=== PATIENT | male | born 1950 | race Caucasian/White ===

== ENCOUNTER 2019-12-07 12:11 | Outpatient (RCR) | payer MEDICARE, OTHER, SELFPAY | END 2020-01-03 23:59 | disposition home or self-care (01) | LOC: SPT 12:11 | PROVIDERS: PCP Internal Medicine; Visit Provider Internal Medicine | DX: M54.10 Radiculopathy, site unspecified (principal) | CPT/HCPCS: 97110; 97162 ==

== ENCOUNTER 2019-12-16 09:11 | Day surgery (SDC) | payer MEDICARE, OTHER, SELFPAY ==
[2019-12-15 13:10] VITALS: BMI 28.2
[2019-12-16] MEDS: sodium chloride 0.9% 1,000 ML 30 ML IV (09:42)
--- NOTE | 2019-12-16 09:55 | P.ANESASSM_ITS ---
Pre-Anesthetic Assessment Pre-Anesthetic Assessment: Height/Weight: Height 1.93 m Weight 105.233 kg Preop Diagnosis: s Proposed Procedure: Operation Date: 12/16/19 10:00 Proposed Procedures p Colonoscopy G0104 Z12.11(Not Applicable) - Manny Dunn MD Familial anesthetic complications: NOne, last took eliquis thursday Was Beta Bl ocker taken within 24 hours: Yes Last intake: Intake Last Liquid Date 12/15/19 Last Liquid Time 23:00 Last Solid Date 12/14/19 Last Solid Time 18:00 Social: Social History: No alcohol and No tobacco Exam: Pre-Anes Outpt Exam: alert, oriented x 3, clear to auscultation bilaterally and regular rate & rhythm Airway: Cervical ROM: WNL MP: 3 Dentition: Full Pulmonary: Pulmonary: None reported CV/HEM: CV/HEM: Afib and HTN : : None reported Hepatic: Hepatic: None reported GI: GI: None reported Metabolic: Metabolic: None reported Musc/skel: Musc/skel: None reported Neuropsych: Neuropsych: None reported Anesthetic Plan: ASA status: 2 Anesthesia: MAC Risk of > 500 ml blood loss (7ml/kg in children): No Meds/Allergies Current Medications: Current Medications Generic Name Dose Route Start Last Admin Trade Name Freq PRN Reason Stop Dose Admin Sodium Chloride 1,000 mls @ 30 ml s/hr 12/16/19 09:30 12/16/19 09:42 Sodium Chloride 0.9% IV 12/17/19 09:29 30 mls/hr .Q24H FELICIA Administration PFSH Anesthesia PFSH: Medical History (Updated 12/01/19 @ 10:01 by Manny Dunn MD) A-fib Hypertension Family History (Updated 12/01/19 @ 09:05 by Cathie Lopez LPN) Other Dementia Social History (Updated 12/01/19 @ 08:44 by Cathie Lopez LPN) Alcohol intake: current Alcohol intake frequency: few times a month Current occupational status: retired Data Anesthesia Cardiac Studies: No Data to Display
--- NOTE | 2019-12-16 10:22 | P.HP_ITS ---
Same Day Surgery H&P Indication for Procedure/HPI DATE OF PROCEDURE: December 16, 2019 CHIEF COMPLAINT/INDICATIONFOR SURGICAL PROCEDURE: Routine screening average risk PREOP DIAGNOSIS: s PLANNED PROCEDRUE: Operation Date: 12/16/19 10:00 Proposed Procedures p Colonoscopy G0104 Z12.11(Not Applicable) - Manny Dunn MD Medications/Allergies* Home Medications Medication Instructions Recorded Confirmed Type amlodipine 5 mg tablet 5 mg PO DAILY 12/01/19 12/16/19 History apixaban 5 mg tablet 5 mg PO BID 12/01/19 12/15/19 History lisinopril 20 mg tablet 20 mg PO DAILY 12/01/19 12/16/19 History loratadine 10 mg tablet 10 mg PO DAILY 12/01/19 12/16/19 History melatonin 5 mg tablet 5 mg PO DAILY 12/01/19 12/16/19 History metoprolol succinate 50 mg capsule 50 mg PO DAILY 12/01/19 12/16/19 History sprinkle, ext. release 24 hr multivitamin 1 tab PO QAM 12/01/19 12/16/19 History vitamins A,C,Z-sdqd-bdnvvt 14,320 2 cap PO DAILY cap 12/01/19 12/16/19 History unit-226 mg-200 unit capsule Allergies/Adverse Reactions Allergy/AdvReac Type Severity Reaction Status Date / Time No Known Allergies Allergy Verified 12/16/19 09:31 Current Medications: Generic Name Dose Route Start Last Admin Trade Name Freq PRN Reason Stop Dose Admin Sodium Chloride 1,000 mls @ 30 mls/hr 12/16/19 09:30 12/16/19 09:42 Sodium Chloride 0.9% IV 12/17/19 09:29 30 mls/hr .Q24H FELICIA Administration Pertinent History/Comorbid Conditions* Medical History (Updated 12/01/19 @ 10:01 by Manny Dunn MD) A-fib Hypertension Family History (Updated 12/01/19 @ 09:05 by Cathie Lopez LPN) Dementia Social History Alcohol intake: current Alcohol intake frequency: few times a month Current occupational status: retired Pertinent Exam Findings alert, oriented x 3, clear to auscultation bilaterally, regular rate & rhythm, operative site marked and procedure specific exam findings Recommendations Surgery/Procedure today Coding Level of Care Code Acute 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
[2019-12-16 10:35] VITALS: BP 88/67; PULSE 77; RESP 16; TEMP 36.4; O2SAT 97
[2019-12-16 10:42] VITALS: BP 107/75; PULSE 73; RESP 18; O2SAT 98
[2019-12-16 11:03] VITALS: BP 111/75; PULSE 88; RESP 18; O2SAT 98
== END 2019-12-16 11:00 | disposition home or self-care (01) ==
PROVIDERS: PCP Internal Medicine; Visit Provider Internal Medicine
PROC: 0DJD8ZZ Inspection of Lower Intestinal Tract, Via Natural or Artificial Opening Endoscopic (ICD-10-PCS; CPT 45378; principal; 2019-12-16 10:00)
DX: Z12.11 Encounter for screening for malignant neoplasm of colon (principal); I10 Essential (primary) hypertension; I48.91 Unspecified atrial fibrillation
CPT/HCPCS: 12345; G0121; J2704; J7030

== ENCOUNTER → 2019-12-29 14:10 | Outpatient (BNVA) | payer MEDICARE, OTHER, SELFPAY | PROVIDERS: PCP Internal Medicine; Visit Provider Internal Medicine Cardiovascular Disease | DX: I10 Essential (primary) hypertension (principal); I48.91 Unspecified atrial fibrillation | CPT/HCPCS: 80048; 80061; 85025 ==

== ENCOUNTER → 2021-06-18 10:56 | Outpatient (BNVA) | payer SELFPAY | PROVIDERS: PCP Internal Medicine; Referring Provider Internal Medicine; Visit Provider Dermatology | DX: Z01.89 Encounter for other specified special examinations (principal) ==

== ENCOUNTER → 2021-09-17 00:01 | Outpatient (BNVA) | payer SELFPAY | PROVIDERS: PCP Internal Medicine; Visit Provider Dermatology | DX: Z01.89 Encounter for other specified special examinations (principal) ==

== ENCOUNTER 2021-12-17 09:57 | Outpatient (CLI) | payer SELFPAY ==
[2021-12-17 10:28] LABS: HF Add Manual Diff No
[2021-12-17 10:35] LABS: Basophils # 0.1 10^3/uL (0.0-0.1); Basophils % 0.8 %; Eosinophils # 0.1 10^3/uL (0.0-0.8); Eosinophils % 2.2 %; Hemoglobin 15.1 g/dL (11.7-16.6); Lymphocytes # 1.7 10^3/uL (0.8-4.8); Lymphocytes % 28.1 %; Mean Corpuscular HGB Conc 34.3 g/dL (30.0-36.0); Mean Corpuscular Hemoglobin 29.9 pg (28.0-34.0); Mean Corpuscular Volume 87.1 fl (80-94); Mean Platelet Volume 11.3 fL (7.4-10.4); Monocytes # 0.5 10^3/uL (0.2-0.9); Monocytes % 8.6 %; Neutrophils # 3.57 10^3/uL (1.8-7.7); Neutrophils % 60.1 %; Nucleated Red Blood Cells % 0 %; Platelet Count 192 10^3/cmm (130-400); Red Blood Count 5.05 10^6/uL (4.1-5.3); Red Cell Distribution Width 12.7 % (12.1-15.1); White Blood Count 5.9 10^3/uL (4.0-10.0)
[2021-12-17 11:18] LABS: Alanine Aminotransferase 41 U/L (0-41); Albumin Level 4.3 g/dL (3.5-5.2); Alkaline Phosphatase 96 IU/L (40-130); Anion Gap 12.2 (5-19); Aspartate Amino Transferase 26 U/L (0-40); Blood Urea Nitrogen 13 mg/dL (8-23); Calcium 8.9 mg/dL (8.5-10.5); Carbon Dioxide 27 mmol/L (22-29); Chloride 103 mmol/L (98-107); Chol HDL Ratio 3.39 mg/dL (1.0-5.00); Cholesterol 149 mg/dL (0-200); Globulin 2.5 g/dL (1.3-4.6); Glomerular Filtration Rate 83.4 mL/min (90-130); Glucose 111 mg/dL (65-115); HDL Cholesterol 44 mg/dL (60-100); LDL Cholesterol Calculated 80 mg/dL (50-129); LDL HDL Ratio 1.82 RATIO (0.00-3.22); Osmolality Calculated 287 mOsm/kg (285-295); Potassium 4.2 mmol/L (3.5-5.1); Prostate Specific Antigen Scr 2.24 ng/mL (0-4); Sodium 138 mmol/L (136-145); Total Bilirubin 0.5 mg/dL (0.15-1.2); Total Protein 6.8 g/dL (6.6-8.7); Triglycerides 127 mg/dL (0-150)
[2021-12-17 11:43] LABS: Estmated Average Glucose 123; Hemoglobin A1C 5.9 % (4.0-6.0)
== END 2021-12-17 09:58 | disposition home or self-care (01) ==
LOC: LAB 10:01
PROVIDERS: PCP Internal Medicine; Visit Provider Dermatology
DX: Z00.00 Encounter for general adult medical examination without abnormal findings (principal)
CPT/HCPCS: 36415

== ENCOUNTER → 2021-12-24 15:13 | Outpatient (BNVA) | payer MEDICARE, OTHER, SELFPAY | PROVIDERS: PCP Internal Medicine; Visit Provider Internal Medicine Cardiovascular Disease | DX: I48.19 Other persistent atrial fibrillation (principal); I10 Essential (primary) hypertension; E78.5 Hyperlipidemia, unspecified; M54.10 Radiculopathy, site unspecified | CPT/HCPCS: 99214 ==

== ENCOUNTER 2022-03-11 06:32 | Outpatient (CLI) | payer MEDICARE, OTHER, SELFPAY ==
--- NOTE | 2022-03-11 07:00 | USCV_ITS ---
Mark Huerta Age: 71 Gender: M : 1950 Exam Date: 03/11/2022 06:51 Ordering Phys: Esther Gandhi MD ([email or web address]) Technologist: [place] [facility] [place]: Chest pain BP: 120 / 80 HR: 83 Rhythm: Sinus Technical Quality: Adequate MEASUREMENTS (Male / Female) Normal Values 2D ECHO LV Diastolic Diameter PLAX 3.5 cm 4.2 - 5.9 / 3.9 - 5.3 cm LV Systolic Diameter PLAX 2.2 cm IVS Diastolic Thickness 1.1 cm 0.6 - 1.0 / 0.6 - 0.9 cm IVS Systolic Thickness 1.5 cm LVPW Diastolic Thickness 1.1 cm 0.6 - 1.0 / 0.6 - 0.9 cm LVPW Systolic Thickness 1.4 cm LV Ejection Fraction 2D Teich 67.1 % LA Diameter 3.7 cm LA Width 4.9 cm IVC Diameter 1.7 cm M-MODE LV Diastolic Diameter MM 4.8 cm 4.2 - 5.9 / 3.9 - 5.3 cm LV Systolic Diameter MM 3.5 cm LV Ejection Fraction MM Teich 54.9 % IVS Diastolic Thickness MM 1.0 cm 0.6 - 1.0 / 0.6 - 0.9 cm IVS Systolic Thickness MM 1.5 cm LVPW Diastolic Thickness MM 1.1 cm 0.6 - 1.0 / 0.6 - 0.9 cm LVPW Systolic Thickness MM 1.8 cm RV Diastolic Diameter MM 2.1 cm Aortic Annulus Diameter 3.2 cm LA Ao Ratio MM 1.4 MV E Point Septal Separation 0.8 cm DOPPLER AV Peak Velocity 98.0 cm/s LVOT Peak Velocity 68.0 cm/s MV Area PHT 5.0 cm squared Mitral E to A Ratio 2.9 MV E' Velocity 49.5 cm/s Mitral E to MV E' Ratio 12.2 Mitral E to LV E' Lateral Ratio 18.1 Mitral E to LV E' Septal Ratio 9.2 TR Peak Velocity 273.0 cm/s TR Peak Gradient 29.8 mmHg TV Peak E Velocity 102.0 cm/s Right Atrial Pressure 3.0 mmHg Pulmonary Artery Systolic Pressu 32.8 mmHg PV Peak Velocity 89.0 cm/s RV Acceleration Time 0.1 s FINDINGS Left Ventricle Normal left ventricular size, systolic function and wall thickness, with no regional wall motion abnormalities. Left ventricular ejection fraction is estimated at 65 %. Abnormal diastolic function. Right Ventricle Normal right ventricular size and systolic function. Right ventricular systolic pressure 33 mmHg. Right Atrium Normal right atrial size. Left Atrium Mildly increased left atrial size. Mitral Valve Structurally normal mitral valve. No mitral valve stenosis. Trace mitral valve regurgitation. Aortic Valve Structurally normal trileaflet aortic valve. No aortic valve stenosis. No aortic valve regurgitation. Tricuspid Valve Structurally normal tricuspid valve. Mild tricuspid valve regurgitation. Pulmonic Valve Structurally normal pulmonic valve. No pulmonary valve stenosis. Trace pulmonary valve regurgitation. Pericardium No pericardial effusion. Aorta Normal size aortic root and proximal ascending aorta. IVC Normal inferior vena cava. CONCLUSIONS 1. Normal left ventricular size, systolic function and wall thickness, with no regional wall motion abnormalities. Left ventricular ejection fraction is estimated at 65 %. Abnormal diastolic function. 2. Normal right ventricular size and systolic function. 3. Pulmonary artery pressure estimated at 33 mmHg. 4. No significant change when compared to prior study dated 06/12/2017. Esther Gandhi MD (Electronically Signed) Final Date: 17 March 2022 12:28 S
== END 2022-03-11 06:33 | disposition home or self-care (01) ==
LOC: RAD 06:33
PROVIDERS: PCP Internal Medicine; Visit Provider Internal Medicine Cardiovascular Disease
DX: I48.91 Unspecified atrial fibrillation (principal); R07.9 Chest pain, unspecified; I08.1 Rheumatic disorders of both mitral and tricuspid valves
CPT/HCPCS: 93306

== ENCOUNTER 2022-06-17 10:24 | Outpatient (CLI) | payer SELFPAY ==
[2022-06-17 10:57] LABS: HF Add Manual Diff No
[2022-06-17 11:01] LABS: Basophils # 0.1 10^3/uL (0.0-0.1); Basophils % 0.7 %; Eosinophils # 0.1 10^3/uL (0.0-0.8); Eosinophils % 1.9 %; Hematocrit 47.5 % (42.0-52.0); Hemoglobin 15.9 g/dL (11.7-16.6); Lymphocytes # 1.5 10^3/uL (0.8-4.8); Lymphocytes % 21.2 %; Mean Corpuscular HGB Conc 33.5 g/dL (30.0-36.0); Mean Corpuscular Hemoglobin 30.5 pg (28.0-34.0); Mean Corpuscular Volume 91.2 fl (80-94); Mean Platelet Volume 11.1 fL (7.4-10.4); Monocytes # 0.6 10^3/uL (0.2-0.9); Monocytes % 8.8 %; Neutrophils # 4.67 10^3/uL (1.8-7.7); Neutrophils % 67.3 %; Nucleated Red Blood Cells % 0 %; Platelet Count 178 10^3/cmm (130-400); Red Blood Count 5.21 10^6/uL (4.1-5.3); Red Cell Distribution Width 12.7 % (12.1-15.1); White Blood Count 6.9 10^3/uL (4.0-10.0)
[2022-06-17 11:45] LABS: 25 Hydroxy Vitamin D 44 ng/mL (30-100); Alanine Aminotransferase 48 U/L (0-41); Albumin Level 4.2 g/dL (3.5-5.2); Alkaline Phosphatase 109 U/L (40-130); Anion Gap 12.1 (5-19); Aspartate Amino Transferase 31 U/L (0-40); Blood Urea Nitrogen 13 mg/dL (8-23); Calcium 9.3 mg/dL (8.5-10.5); Carbon Dioxide 29 mmol/L (22-29); Chloride 103 mmol/L (98-107); Chol HDL Ratio 3.41 mg/dL (1.0-5.00); Cholesterol 157 mg/dL (0-200); Globulin 2.9 g/dL (1.3-4.6); Glomerular Filtration Rate 95.6 mL/min (90-130); Glucose 119 mg/dL (65-115); HDL Cholesterol 46 mg/dL (60-100); LDL Cholesterol Calculated 80 mg/dL (50-129); LDL HDL Ratio 1.74 RATIO (0.00-3.22); Osmolality Calculated 291 mOsm/kg (285-295); Potassium 4.1 mmol/L (3.5-5.1); Prostate Specific Antigen Scr 2.72 ng/mL (0-4); Sodium 140 mmol/L (136-145); Total Bilirubin 0.8 mg/dL (0.15-1.2); Total Protein 7.1 g/dL (6.6-8.7); Triglycerides 155 mg/dL (0-150)
[2022-06-17 12:14] LABS: Estmated Average Glucose 120; Hemoglobin A1C 5.8 % (4.0-6.0)
== END 2022-06-17 10:25 | disposition home or self-care (01) ==
PROVIDERS: PCP Internal Medicine; Visit Provider Dermatology
DX: Z01.89 Encounter for other specified special examinations (principal); I48.19 Other persistent atrial fibrillation; I10 Essential (primary) hypertension; E78.5 Hyperlipidemia, unspecified; M54.10 Radiculopathy, site unspecified
CPT/HCPCS: 99214

== ENCOUNTER → 2022-09-09 09:56 | Outpatient (BNVA) | payer MEDICARE, OTHER, SELFPAY | PROVIDERS: PCP Internal Medicine; Visit Provider Family Medicine | DX: N52.1 Erectile dysfunction due to diseases classified elsewhere (principal); I48.19 Other persistent atrial fibrillation; L82.1 Other seborrheic keratosis; L57.0 Actinic keratosis; Z12.5 Encounter for screening for malignant neoplasm of prostate; I10 Essential (primary) hypertension; M54.10 Radiculopathy, site unspecified; M48.062 Spinal stenosis, lumbar region with neurogenic claudication | CPT/HCPCS: 80053; G0103 ==

== ENCOUNTER 2022-09-15 13:26 | Outpatient (CLI) | payer MEDICARE, OTHER, SELFPAY ==
--- NOTE | 2022-09-15 14:22 | XR_ITS ---
WS: [id number] XR lumbar spine 2-3V* [id number] REASON FOR EXAM: Low back pain, Radiculopathy. FINDINGS: Minimal rotatory scoliosis convex right. Normal lordosis. No significant focal vertebral body abnormality. Partial sacralization of L5. Intervertebral disc spaces are relatively well-preserved. Mild narrowing of the L1-L2 disc space. No spondylolysis and no significant spondylolisthesis. Moderate degenerative change in the facet joints L4-S1. XR/XR lumbar spine 2-3V* [id number] IMPRESSION: Minimal change of degenerative spondylosis for age.
== END 2022-09-15 13:27 | disposition home or self-care (01) ==
PROVIDERS: PCP Internal Medicine; Visit Provider Family Medicine
DX: M54.16 Radiculopathy, lumbar region (principal); M47.816 Spondylosis without myelopathy or radiculopathy, lumbar region
CPT/HCPCS: 72100

== ENCOUNTER 2022-10-06 08:00 | Outpatient (CLI) | payer MEDICARE, OTHER, SELFPAY ==
--- NOTE | 2022-10-06 08:00 | MR_ITS ---
WS: [id number] MRI LUMBAR SPINE NONCONTRAST TECHNIQUE: Sagittal T1, T2 and STIR imaging. Axial T1 and T2 imaging. CLINICAL INFORMATION: Lumbar back pain with claudication COMPARISON: None. FINDINGS: Counting performed from the craniocervical junction. L5 is partially sacralized on the LEFT . Residual disc space at L5-S1. Mild lumbar curve. No acute compression. L1-L2: Mild annular bulging. Slight effacement of ventral thecal sac. Mild facet arthropathy. Spinal canal and foramen are patent. L2-L3: Mild annular bulging. Mild central canal stenosis. Slight impingement traversing L3 nerve root s bilaterally. Mild RIGHT foraminal narrowing. Moderate facet arthropathy. L3-L4: Mild annular bulging. Mild central canal stenosis. Narrowing of the subarticular recess bilate rally. LEFT foraminal protrusion impinges the exiting LEFT L3 nerve root. RIGHT foramen is patent. L4-L5: Central disc protrusion results in severe central canal stenosis. Moderate facet arthropathy l igamentum flavum hypertrophy. Impingement traversing L5 nerve roots bilaterally. Mild RIGHT foraminal narrowing. Mild L5-S1: L5 is partially sacralized. Moderate facet arthropathy. Narrowing of the RIGHT subarticular re cess. Mild RIGHT and no significant LEFT foraminal narrowing. Moderate facet arthropathy. Visualized pelvic bony structures: Normal. Paravertebral soft tissues: Normal. MR/MR lumbar spine wo con* [id number] IMPRESSION: 1. Mild lumbar curve. No acute compression. L5 is partially sacralized. 2. Severe central canal stenosis L4-L5 with a shallow central disc protrusion. Impingement traversing L5 nerve roots bilaterally. Recommend spine surgery con sultation 3. Mild central canal stenosis L1-L2, L2-L3, L3-L4 with narrowing of the subar ticular recess at these levels. 4. LEFT foraminal protrusion L3-L4 impinges the exiting LEFT L3 nerve root.
== END 2022-10-06 08:01 | disposition home or self-care (01) ==
LOC: RAD 08:04
PROVIDERS: PCP Internal Medicine; Visit Provider Family Medicine
DX: M48.062 Spinal stenosis, lumbar region with neurogenic claudication (principal); M51.26 Other intervertebral disc displacement, lumbar region
CPT/HCPCS: 72148

== ENCOUNTER → 2023-04-08 08:49 | Outpatient (BNVA) | payer MEDICARE, OTHER, SELFPAY | PROVIDERS: PCP Internal Medicine; Visit Provider Nurse Practitioner Family | DX: D22.5 Melanocytic nevi of trunk (principal); L57.0 Actinic keratosis; L81.4 Other melanin hyperpigmentation; L57.8 Other skin changes due to chronic exposure to nonionizing radiation; L30.0 Nummular dermatitis | CPT/HCPCS: 17000; 99214 ==

== ENCOUNTER 2023-06-16 09:30 | Outpatient (CLI) | payer SELFPAY ==
[2023-06-16 10:03] LABS: HF Add Manual Diff No
[2023-06-16 10:09] LABS: Hematocrit 44.4 % (37-53); Mean Corpuscular HGB Conc 32.4 g/dL (30-55); Mean Corpuscular Hemoglobin 29.9 pg (27-33); Mean Corpuscular Volume 92.3 fl (82-101); Red Blood Count 4.81 10^6/uL (3.85-5.65); Red Cell Distribution Width 12.6 % (12.1-15.1); White Blood Count 4.99 10^3/uL (3.29-11.43)
[2023-06-16 10:10] LABS: Basophils % 0.8 %; Eosinophils # 0.2 10^3/uL (0.0-0.8); Eosinophils % 3.8 %; Lymphocytes # 1.5 10^3/uL (0.8-4.8); Lymphocytes % 30.3 %; Mean Platelet Volume 10.9 fL (7.4-10.4); Monocytes # 0.4 10^3/uL (0.2-0.9); Monocytes % 8.2 %; Neutrophils # 2.83 10^3/uL (1.8-7.7); Neutrophils % 56.7 %; Nucleated Red Blood Cells % 0 %; Platelet Count 182 10^3/cmm (157-399)
[2023-06-16 10:40] LABS: Estmated Average Glucose 131; Hemoglobin A1C 6.2 % (4.0-6.0)
[2023-06-16 10:53] LABS: 25 Hydroxy Vitamin D 43 ng/mL (30-100); Alanine Aminotransferase 33 U/L (0-41); Albumin Level 4.1 g/dL (3.5-5.2); Alkaline Phosphatase 124 U/L (40-130); Anion Gap 11.2 (5-19); Aspartate Amino Transferase 22 U/L (0-40); Blood Urea Nitrogen 12 mg/dL (8-23); Calcium 9.1 mg/dL (8.5-10.5); Carbon Dioxide 28 mmol/L (22-29); Chloride 104 mmol/L (98-107); Chol HDL Ratio 3.09 mg/dL (1.0-5.00); Cholesterol 139 mg/dL (0-200); Globulin 2.6 g/dL (1.3-4.6); Glucose 111 mg/dL (65-115); HDL Cholesterol 45 mg/dL (60-100); LDL Cholesterol Calculated 72 mg/dL (50-129); Osmolality Calculated 288 mOsm/kg (285-295); Potassium 4.2 mmol/L (3.5-5.1); Prostate Specific Antigen Scr 2.91 ng/mL (0-4); Sodium 139 mmol/L (136-145); Total Bilirubin 0.5 mg/dL (0.15-1.2); Total Protein 6.7 g/dL (6.6-8.7); Triglycerides 110 mg/dL (0-150)
== END 2023-06-16 09:31 | disposition home or self-care (01) ==
LOC: LAB 09:32
PROVIDERS: PCP Internal Medicine; Visit Provider Dermatology
DX: Z01.89 Encounter for other specified special examinations (principal)
CPT/HCPCS: 36415

== ENCOUNTER 2023-08-31 14:37 | Outpatient (CLI) | payer MEDICARE, OTHER, SELFPAY ==
--- NOTE | 2023-08-31 14:44 | XR_ITS ---
WS: [id number] DEXA (DUAL ENERGY X-RAY ABSORPTIOMETRY) Bone mineral density was performed using a [employer] machine. HISTORY: Osteoporosis, male patient. COMPARISON: None available. Left forearm BMD: 0.853 g/cm2. T score: -1.4 Z score: -0.5 Total hip BMD: Left: 0.992 g/cm2. T score: -0.8 Z score: -0.4 Right: 0.995 g/cm2. T score: -0.7 Z score: -0.4 10 year probability of a major osteoporotic fracture is 8.2%. IMPRESSION: OSTEOPENIA.
== END 2023-08-31 14:38 | disposition home or self-care (01) ==
LOC: RAD 14:38
PROVIDERS: PCP Family Medicine; Visit Provider Family Medicine
DX: M81.0 Age-related osteoporosis without current pathological fracture (principal)
CPT/HCPCS: 77080

== ENCOUNTER → 2023-10-09 10:17 | Outpatient (BNVA) | payer MEDICARE, OTHER, SELFPAY | PROVIDERS: PCP Family Medicine; Visit Provider Nurse Practitioner Family | DX: D22.5 Melanocytic nevi of trunk (principal); L57.0 Actinic keratosis; L81.4 Other melanin hyperpigmentation; L57.8 Other skin changes due to chronic exposure to nonionizing radiation; L30.0 Nummular dermatitis; Z80.8 Family history of malignant neoplasm of other organs or systems | CPT/HCPCS: 17000; 99214 ==

== ENCOUNTER 2023-11-04 20:00 | Outpatient (CLI) | payer MEDICARE, OTHER, SELFPAY | END 2023-11-04 20:01 | disposition home or self-care (01) | LOC: SLEEP 11-05 06:37 | PROVIDERS: PCP Family Medicine; Visit Provider Family Medicine | DX: G47.10 Hypersomnia, unspecified (principal); R40.0 Somnolence; G47.33 Obstructive sleep apnea (adult) (pediatric); G47.36 Sleep related hypoventilation in conditions classified elsewhere | CPT/HCPCS: 95810 ==

== ENCOUNTER 2023-11-25 20:00 | Outpatient (CLI) | payer MEDICARE, OTHER, SELFPAY | END 2023-11-25 20:01 | disposition home or self-care (01) | LOC: SLEEP 11-26 04:54 | PROVIDERS: PCP Family Medicine; Visit Provider Family Medicine | DX: G47.33 Obstructive sleep apnea (adult) (pediatric) (principal) | CPT/HCPCS: 95811 ==

== ENCOUNTER → 2024-05-04 11:30 | Outpatient (BNVA) | payer MEDICARE, OTHER, SELFPAY | PROVIDERS: PCP Family Medicine; Visit Provider Family Medicine | DX: Z12.5 Encounter for screening for malignant neoplasm of prostate (principal); E55.9 Vitamin D deficiency, unspecified; I10 Essential (primary) hypertension; I48.19 Other persistent atrial fibrillation; E78.2 Mixed hyperlipidemia | CPT/HCPCS: 80053; 80061; 82306; 84443; 85025; G0103 ==

== ENCOUNTER 2024-06-14 10:46 | Outpatient (CLI) | payer SELFPAY ==
[2024-06-14 11:04] LABS: HF Add Manual Diff No
[2024-06-14 11:05] LABS: Basophils % 0.5 %; Eosinophils # 0.1 10^3/uL (0.0-0.8); Eosinophils % 1.8 %; Hematocrit 47.5 % (37-53); Lymphocytes # 1.6 10^3/uL (0.8-4.8); Lymphocytes % 26.7 %; Mean Corpuscular HGB Conc 33.3 g/dL (30-55); Mean Corpuscular Hemoglobin 29.5 pg (27-33); Mean Corpuscular Volume 88.8 fl (82-101); Mean Platelet Volume 11.3 fL (7.4-10.4); Monocytes # 0.5 10^3/uL (0.2-0.9); Monocytes % 8.8 %; Neutrophils # 3.74 10^3/uL (1.8-7.7); Neutrophils % 61.9 %; Nucleated Red Blood Cells % 0 %; Platelet Count 187 10^3/cmm (157-399); Red Blood Count 5.35 10^6/uL (3.85-5.65); Red Cell Distribution Width 12.9 % (12.1-15.1); White Blood Count 6.04 10^3/uL (3.29-11.43)
[2024-06-14 11:25] LABS: Alanine Aminotransferase 43 U/L (0-41); Albumin Level 4.4 g/dL (3.5-5.2); Alkaline Phosphatase 115 U/L (40-130); Blood Urea Nitrogen 15 mg/dL (8-23); Calcium 9.3 mg/dL (8.5-10.5); Carbon Dioxide 28 mmol/L (22-29); Chloride 102 mmol/L (98-107); Chol HDL Ratio 3.36 mg/dL (1.0-5.00); Cholesterol 131 mg/dL (0-200); Glucose 112 mg/dL (65-115); HDL Cholesterol 39 mg/dL (60-100); LDL Cholesterol Calculated 66 mg/dL (50-129); LDL HDL Ratio 1.69 RATIO (0.00-3.22); Osmolality Calculated 290 mOsm/kg (285-295); Sodium 139 mmol/L (136-145); Total Bilirubin 0.7 mg/dL (0.15-1.2); Total Protein 7.4 g/dL (6.6-8.7); Triglycerides 131 mg/dL (0-150)
[2024-06-14 11:28] LABS: Anion Gap 13.4 (5-19); Aspartate Amino Transferase 32 U/L (0-40); Potassium 4.4 mmol/L (3.5-5.1)
[2024-06-14 11:54] LABS: Estmated Average Glucose 131; Hemoglobin A1C 6.2 % (4.0-6.0)
== END 2024-06-14 10:47 | disposition home or self-care (01) ==
LOC: LAB 10:48
PROVIDERS: PCP Family Medicine; Visit Provider Dermatology
DX: Z13.9 Encounter for screening, unspecified (principal)
CPT/HCPCS: 36415

== ENCOUNTER → 2024-06-16 13:00 | Outpatient (BNVA) | payer MEDICARE, OTHER, SELFPAY | PROVIDERS: PCP Family Medicine; Visit Provider Internal Medicine | DX: I48.19 Other persistent atrial fibrillation (principal); I10 Essential (primary) hypertension; E78.2 Mixed hyperlipidemia; M54.10 Radiculopathy, site unspecified; Z79.01 Long term (current) use of anticoagulants | CPT/HCPCS: 99213 ==

== ENCOUNTER → 2024-10-20 15:33 | Outpatient (BNVA) | payer MEDICARE, OTHER, SELFPAY | PROVIDERS: PCP Family Medicine; Visit Provider Nurse Practitioner Family | DX: L57.8 Other skin changes due to chronic exposure to nonionizing radiation (principal); L81.4 Other melanin hyperpigmentation; D22.5 Melanocytic nevi of trunk; Z80.8 Family history of malignant neoplasm of other organs or systems; D48.5 Neoplasm of uncertain behavior of skin; L57.0 Actinic keratosis | CPT/HCPCS: 11102; 17000; 99213 ==

== ENCOUNTER → 2025-06-06 09:36 | Outpatient (BNVA) | payer MEDICARE, OTHER, SELFPAY | PROVIDERS: PCP Family Medicine; Visit Provider Internal Medicine | DX: I48.91 Unspecified atrial fibrillation (principal); Z79.01 Long term (current) use of anticoagulants; I10 Essential (primary) hypertension; E78.5 Hyperlipidemia, unspecified; M54.10 Radiculopathy, site unspecified | CPT/HCPCS: 99214 ==

== ENCOUNTER 2025-06-15 09:23 | Outpatient (CLI) | payer SELFPAY ==
[2025-06-15 10:34] LABS: HF Add Manual Diff No
[2025-06-15 10:37] LABS: Hematocrit 45.5 % (37-53); Hemoglobin 15.30 g/dL (11.27-16.99); Mean Corpuscular HGB Conc 33.6 g/dL (30-55); Mean Corpuscular Hemoglobin 29.9 pg (27-33); Mean Corpuscular Volume 89.0 fl (82-101); Nucleated Red Blood Cells % 0 %; Platelet Count 205 10^3/cmm (157-399); Red Blood Count 5.11 10^6/uL (3.85-5.65); White Blood Count 5.39 10^3/uL (3.29-11.43)
[2025-06-15 11:19] LABS: Estmated Average Glucose 126; Hemoglobin A1C 6.0 % (4.0-6.0)
[2025-06-15 11:34] LABS: Alanine Aminotransferase 33 U/L (0-41); Albumin Level 4.3 g/dL (3.5-5.2); Alkaline Phosphatase 98 U/L (40-130); Anion Gap 14.5 (5-19); Aspartate Amino Transferase 27 U/L (0-40); Blood Urea Nitrogen 13 mg/dL (8-23); Calcium 9.2 mg/dL (8.5-10.5); Carbon Dioxide 27 mmol/L (22-29); Chloride 105 mmol/L (98-107); Cholesterol 144 mg/dL (0-200); Globulin 2.9 g/dL (1.3-4.6); Glucose 118 mg/dL (65-115); HDL Cholesterol 47 mg/dL (60-100); Osmolality Calculated 295 mOsm/kg (285-295); Potassium 4.5 mmol/L (3.5-5.1); Sodium 142 mmol/L (136-145); Total Protein 7.2 g/dL (6.6-8.7); Triglycerides 115 mg/dL (0-150)
== END 2025-06-15 09:24 | disposition home or self-care (01) ==
PROVIDERS: PCP Family Medicine; Visit Provider Dermatology
DX: Z01.89 Encounter for other specified special examinations (principal)
CPT/HCPCS: 36415